=== PATIENT | female | born 1985 | race Caucasian/White ===

== ENCOUNTER 2016-03-15 18:50 | Emergency (ER) | payer SELFPAY ==
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
[2016-03-15] MEDS ORDERED: HYDROCODONE/ACETAMINOPHEN 5-325 MG TABLET PO ONE (20:28)
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
[2016-03-15 20:43] VITALS: BP 147/97
== END 2016-03-15 20:43 | disposition home or self-care (01) ==
LOC: ER 18:50
DX: S69.91XA Unspecified injury of right wrist, hand and finger(s), initial encounter (principal); M79.89 Other specified soft tissue disorders; W21.03XA Struck by baseball, initial encounter; Y93.64 Activity, baseball; Y92.39 Other specified sports and athletic area as the place of occurrence of the external cause; I10 Essential (primary) hypertension; Z98.51 Tubal ligation status
CPT/HCPCS: 99283

== ENCOUNTER 2016-08-03 08:59 | Emergency (ER) | payer OTHER ==
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
[2016-08-03 11:54] VITALS: BP 124/89
== END 2016-08-03 11:55 | disposition home or self-care (01) ==
LOC: ER 08:59
DX: R07.89 Other chest pain (principal); V43.62XA Car passenger injured in collision with other type car in traffic accident, initial encounter; W22.12XA Striking against or struck by front passenger side automobile airbag, initial encounter; Y93.84 Activity, sleeping; I10 Essential (primary) hypertension; J45.909 Unspecified asthma, uncomplicated; F17.210 Nicotine dependence, cigarettes, uncomplicated
CPT/HCPCS: 71260; 99283

== ENCOUNTER 2017-11-20 01:42 | Emergency (ER) | payer SELFPAY ==
[2017-11-20] MEDS ORDERED: LORAZEPAM 1 MG TABLET PO ONE (03:44)
--- NOTE | 2017-11-20 03:44 | ER Document Report ---
ED General - General Chief Complaint: Chest Pain Stated Complaint: CHEST PAIN Time Seen by Provider: 11/20/17 03:39 Mode of Arrival: Ambulatory Information source: Patient, [facility] Records Notes: 32-year-old female with hypertension, bipolar disorder, anxiety presents with complaint of chest tightness, nausea and dizziness that occurred after she drank a double energy shot. Upon my exam patient states that her chest tightness and dizziness have resolved. She states that she took the energy shot at 12 AM because she was cleaning. She does not usually drink caffeine. She denies any associated alcohol or drug use. She does admit to tobacco use. Patient denies fever, chills, shortness of breath, abdominal pain. TRAVEL OUTSIDE OF THE [place] IN LAST 30 DAYS: No - HPI Onset: Just prior to arrival Onset/Duration: Sudden, Gone Quality of pain: Other - Chest tightness Severity: Mild Associated symptoms: Nausea. denies: Diarrhea, Headache, Vomiting, Shortness of breath Exacerbated by: Denies Relieved by: Denies Similar symptoms previously: No Recently seen / treated by doctor: No - Related Data Allergies/Adverse Reactions: No Known Allergies Allergy (Verified 08/03/16 09:02) Past Medical History - General Information source: Patient, [facility] Records - Social History Smoking Status: Current Every Day Smoker Cigarette use (# per day): Yes - 15 Smoking Education Provided: Yes - Smoking cessation counseling was provided for 4 minutes at the bedside Frequency of alcohol use: None Drug Abuse: None Lives with: Spouse/Significant other Family History: Reviewed & Not Pertinent Patient has suicidal ideation: No Patient has homicidal ideation: No - Past Medical History Cardiac Medical History: Reports: Hx Hypertension Pulmonary Medical History: Reports: Hx Asthma Renal/ Medical History: Denies: Hx Peritoneal Dialysis Psychiatric Medical History: Reports: Hx Attention Deficit Hyperactivity Disorder, Hx Bipolar Disorder, Hx Depression, Hx Schizophrenia Past Surgical History: Reports: Hx Tubal Ligation - Immunizations Hx Diphtheria, Pertussis, Tetanus Vaccination: Yes Review of Systems - Review of Systems Notes: REVIEW OF SYSTEMS: CONSTITUTIONAL : Denies fever, chills, or sweats. Denies recent illness. Denies weight loss, recent hospitalizations. EENT: Denies visual changes, eye pain. Denies sore throat, oral lesions, difficulty swallowing. CARDIOVASCULAR: Denies chest pain. Denies palpitations. Denies lower extremity edema. RESPIRATORY: Denies cough. Denies shortness of breath, wheezing. GASTROINTESTINAL: Denies abdominal pain or distention. Denies vomiting, or diarrhea. Denies blood in vomitus, stools, or per rectum. Denies black, tarry stools. Denies constipation. GENITOURINARY: Denies difficulty urinating, painful urination, frequency, blood in urine, or vaginal discharge. MUSCULOSKELETAL: Denies back or neck pain or stiffness. Denies joint pain or swelling. SKIN: Denies rash, lesions or sores. HEMATOLOGIC : Denies easy bruising or bleeding. LYMPHATIC: Denies swollen glands. NEUROLOGICAL: Denies confusion or altered mental status. Denies loss of consciousness. Denies headache. Denies weakness or paralysis. Denies problems difficulty with ambulation, slurred speech. Denies sensory loss, numbness, or tingling. Denies seizures. PSYCHIATRIC: Denies anxiety or stress. Denies depression, suicidal ideation, or homicidal ideation. Denies visual or auditory hallucinations. Physical Exam - Vital signs Vitals: Temp Pulse Resp BP Pulse Ox 98.4 F 99 20 142/91 H 99 11/20/17 01:56 11/20/17 01:56 11/20/17 01:56 11/20/17 01:56 11/20/17 01:56 Interpretation: Hypertensive - Notes Notes: PHYSICAL EXAMINATION: GENERAL: Well-appearing, well-nourished and in no acute distress. HEAD: Atraumatic, normocephalic. EYES: Pupils equal round and reactive to light, extraocular movements intact, conjunctiva are normal. ENT: Nares patent, oropharynx clear without exudates. Moist mucous membranes. NECK: Normal range of motion, supple without lymphadenopathy LUNGS: Breath sounds clear to auscultation bilaterally and equal. No wheezes rales or rhonchi. HEART: Regular rate and rhythm without murmurs ABDOMEN: Soft, nontender, nondistended abdomen. No guarding, no rebound. No masses appreciated. Female : deferred Musculoskeletal: Normal range of motion, no pitting or edema. No cyanosis. NEUROLOGICAL: Cranial nerves grossly intact. Normal speech, normal gait. Normal sensory, motor exams PSYCH: Normal mood, normal affect. SKIN: Warm, Dry, normal turgor, no rashes or lesions noted. Course - Re-evaluation Re-evalutation: 11/20/17 21:40 32-year-old female presents with complaint of chest tightness, dizziness after drinking a double energy shot at 12 AM. Upon my exam patient states that her chest tightness has already resolved. Vital signs stable. Patient does not appear toxic or dehydrated. She is in no acute distress. EKG showed normal sinus rhythm. Chest x-ray is shows no acute abnormality. Patient has remained stable and without discomfort throughout her ED course. Patient requesting discharge home. Patient provided the opportunity to ask questions, and express concerns. Discharge instructions discussed. Patient is agreeable with discharge home. Return indications explained and discussed with the patient who displays understanding. Patient encouraged to return to the emergency department immediately with any concerns. Results were discussed with the patient at this point, after careful consideration I feel that that patient can be discharged from the emergency department, the patient was educated treatments and reasons to return to the emergency department based on their presumed diagnosis as noted above, they were advised to followup with a primary care physician in 2-3 days. Patient was agreeable to plan of care. Dictation on this chart was performed using voice recognition software and may result in unintended grammatical, spelling, syntax or errors. 11/20/17 21:42 - Vital Signs Vital signs: Temp Pulse Resp BP Pulse Ox 98.5 F 96 16 131/89 H 94 11/20/17 05:39 11/20/17 05:39 11/20/17 05:39 11/20/17 05:39 11/20/17 05:39 Discharge - Discharge Clinical Impression: Chest tightness, Dizziness, Caffeine intoxication with complication, Elevated blood pressure reading Condition: Good Disposition: HOME, SELF-CARE Instructions: Chest Pain of Unclear Cause ([facility]), Dizziness ([facility]) Additional Instructions: I believe that your chest tightness was likely secondary to the energy drink that you took earlier today. Forms: Elevated Blood Pressure
--- NOTE | 2017-11-20 03:59 | RADIOLOGY REPORT (SQ) ---
EXAM DESCRIPTION: XR CHEST 2 VIEWS COMPLETED DATE/TME: 11/20/2017 03:39 CLINICAL HISTORY: chest tightness COMPARISON: 06/22/2013 FINDINGS: Frontal and lateral views of the chest. The cardiomediastinal silhouette has normal size and contour. No consolidation, pneumothorax, or pleural effusion. No displaced rib fractures identified. Upper abdominal soft tissues are unremarkable. IMPRESSION: 1. No acute pulmonary process identified.
[2017-11-20 05:42] VITALS: BP 131/89
--- NOTE | 2017-11-20 12:40 | EKG REPORT ---
SEVERITY:- NORMAL ECG - SINUS RHYTHM : Confirmed by: Britt Ramon MD 20-Nov-2017 12:38:43
== END 2017-11-20 05:42 | disposition home or self-care (01) ==
LOC: ER 01:42
DX: F15.929 Other stimulant use, unspecified with intoxication, unspecified (principal); R07.89 Other chest pain; R42 Dizziness and giddiness; R11.0 Nausea; I10 Essential (primary) hypertension; J45.909 Unspecified asthma, uncomplicated; F17.210 Nicotine dependence, cigarettes, uncomplicated; Z71.6 Tobacco abuse counseling
CPT/HCPCS: 71046; 93005; 93010; 99285

== ENCOUNTER 2017-11-27 13:48 | Emergency (ER) | payer SELFPAY ==
[2017-11-27] MEDS ORDERED: CIPROFLOXACIN HCL/DEXAMETH OTIC DROP 7.5 ML AS ONE (14:19)
--- NOTE | 2017-11-27 14:29 | ER Document Report ---
ED ENT - General Chief Complaint: Ear Pain Stated Complaint: EAR SWELLING/PAIN Time Seen by Provider: 11/27/17 14:11 Mode of Arrival: Ambulatory Information source: Patient, Friend - Patient is a 32-year-old female comes to emergency room Notes: Patient is a 32-year-old female comes emergency room complaining left ear pain. Patient states this started about 3 days ago and is progressively gotten worse. She states her boyfriend looked at it this morning and he thinks it is closed up because he cannot see into the ear. It is very painful to touch the outside of the year but it feels like there is a bug inside. She also tells me that it hurts about last night that she stuck her finger in her ear and she also stuck a Q-tip in it and dog until it got better. She also placed peroxide in for an hour. TRAVEL OUTSIDE OF THE [place] IN LAST 30 DAYS: No - HPI Patient complains to provider of: Ear problem Onset: Other - 3 days ago Onset/Duration: Gradual Quality of pain: Achy, Sharp, Stabbing Severity: Moderate Pain Level: 3 Context: Injury Location of pain: Ears Associated symptoms: Ear pain. denies: Ear drainage, Fever Similar symptoms previously: No Recently seen / treated by doctor: No - Related Data Allergies/Adverse Reactions: No Known Allergies Allergy (Verified 11/27/17 13:48) Past Medical History - General Information source: Patient - Social History Smoking Status: Current Every Day Smoker Cigarette use (# per day): Yes Chew tobacco use (# tins/day): No Smoking Education Provided: Yes Frequency of alcohol use: Rare Drug Abuse: None Lives with: Family Family History: Reviewed & Not Pertinent - Past Medical History Cardiac Medical History: Reports: Hx Hypertension Pulmonary Medical History: Reports: Hx Asthma Renal/ Medical History: Denies: Hx Peritoneal Dialysis Psychiatric Medical History: Reports: Hx Attention Deficit Hyperactivity Disorder, Hx Bipolar Disorder, Hx Depression, Hx Schizophrenia Past Surgical History: Reports: Hx Tubal Ligation - Immunizations Hx Diphtheria, Pertussis, Tetanus Vaccination: Yes Review of Systems - Review of Systems Constitutional: No symptoms reported EENT: No symptoms reported, Ear pain Cardiovascular: No symptoms reported Respiratory: No symptoms reported Gastrointestinal: No symptoms reported Genitourinary: No symptoms reported Female Genitourinary: No symptoms reported Musculoskeletal: No symptoms reported Skin: No symptoms reported Hematologic/Lymphatic: No symptoms reported Neurological/Psychological: No symptoms reported -: Yes All other systems reviewed and negative Physical Exam - Vital signs Vitals: Temp Pulse Resp BP Pulse Ox 98.1 F 99 14 143/96 H 100 11/27/17 13:51 11/27/17 13:51 11/27/17 13:51 11/27/17 13:51 11/27/17 13:51 Interpretation: Hypertensive - Notes Notes: Patient is a well-nourished well-developed 32-year-old female. She is in no apparent distress. - General General appearance: Alert, Other - Uncomfortable appearing In distress: None - HEENT Head: Normocephalic, Atraumatic Eyes: Normal Extraocular movements intact: Yes Pupils: PERRL Ears: Pinna tenderness, Other - Examination of patient's ears shows there to be a external canal cellulitis that extends from the pinna into the inner canal. The external canal is very erythematous and angry appearing may be secondary to the peroxide and to the trauma caused by patient last night. The entire external canal is angry appearing. It is difficult to see the TM secondary to the amount of erythema that is in the ear the canal itself is not closed up and there is no exudate. The TM appears to be intact and bulging with a fluid level behind it. This would indicate that there is no perforation. The fluid appears to be clear in nature. The rest of the TM is very hyperemic. External canal: Blood in canal, Erythema. No: Swollen Tympanic membrane: Bulging, Injected, Loss of landmarks. No: Perforation Hearing loss: Left Sinus: Maxillary, Tenderness, Other - Left maxillary sinus is tender to palpation. Nasal: Other - Examination of the head and upper airway showed nasal mucosa to be moderately erythematous and edematous with a rhinorrhea noted that is clear. Pharynx: Erythema. No: Blood in hypopharynx, Exudate, Peritonsillar abscess, Post nasal drainage, Retropharyngeal abscess, Tonsillar hypertrophy, Uvular edema, Potential airway comprom. Neck: Anterior cervical chain, Lymphadenopathy, Supple. No: Normal, Posterior cervical chain, Brudzinski, Carotid bruit, Meningismus, Neck mass, Shotty nodes , Subcutaneous emphysema, Thyroid nodule, Thyromegally - Respiratory Respiratory status: No respiratory distress Chest status: Nontender Breath sounds: Normal. No: Rales, Rhonchi, Stridor, Wheezing Chest palpation: Normal - Cardiovascular Rhythm: Regular Heart sounds: Normal auscultation Murmur: No - Skin Skin Temperature: Warm Skin Moisture: Dry Skin Color: Normal Course - Re-evaluation Re-evalutation: 11/27/17 14:31 It appears the patient has cellulitis on the external canal to the lobe itself. She also has a otitis media probably secondary to sinuses. Is bulging TM with fluid behind it. I am going to treat the outside cellulitis with Bactrim and we will also use Ciprodex drops. And will place her on Sudafed as well. - Vital Signs Vital signs: Temp Pulse Resp BP Pulse Ox 98.5 F 92 16 130/96 H 100 11/27/17 14:57 11/27/17 14:57 11/27/17 14:57 11/27/17 14:57 11/27/17 14:57 Discharge - Discharge Clinical Impression: Cellulitis of external ear, unspecified ear Qualifiers: Laterality: left Qualified Code(s): H60.12 - Cellulitis of left external ear Otitis externa Qualifiers: Otitis externa type: other infective Chronicity: acute Laterality: left Qualified Code(s): H60.392 - Other infective otitis externa, left ear Condition: Stable Disposition: HOME, SELF-CARE Instructions: Acetaminophen, Cellulitis ([facility]), Use of Ear Drops ([facility]), Otitis Externa ([facility]) Additional Instructions: Home and use 3 drops of the medication twice a day. Do not use any more peroxide in the ear do not stick anything in your ear that is smaller than your elbow please. Take medication as prescribed. Return to ER if you should have any concerns or problems or if he was not progressing appropriately. Prescriptions: Pseudoephedrine HCl [Sudafed 12 Hour] 120 mg PO BID #20 tablet.er Sulfamethoxazole/Trimethoprim [Bactrim Ds Tablet] 1 each PO BID #20 tablet Forms: Elevated Blood Pressure, Smoking Cessation Education, Parent Work Note
[2017-11-27 14:58] VITALS: BP 130/96
== END 2017-11-27 15:25 | disposition home or self-care (01) ==
LOC: ER 13:48
DX: H60.12 Cellulitis of left external ear (principal); H66.90 Otitis media, unspecified, unspecified ear; J34.89 Other specified disorders of nose and nasal sinuses; R59.0 Localized enlarged lymph nodes; F17.210 Nicotine dependence, cigarettes, uncomplicated; I10 Essential (primary) hypertension; J45.909 Unspecified asthma, uncomplicated
CPT/HCPCS: 99282; J3490

== ENCOUNTER 2019-10-31 23:27 | Emergency (ER) | payer SELFPAY ==
[2019-10-31] MEDS ORDERED: METHYLPREDNISOLONE INJ 125 MG/2 ML SDV IV ONE (23:40)
[2019-10-31] MEDS ORDERED: CYCLOBENZAPRINE HCL 10 MG TABLET PO ONE (23:40)
[2019-10-31 23:41] VITALS: BP 141/95
--- NOTE | 2019-10-31 23:41 | ER Document Report ---
HPI - HPI Patient complains to provider of: Back pain Time Seen by Provider: 10/31/19 23:33 Pain Level: 3 Context: 34-year-old female past medical history significant for sciatica presents to the emergency room complaining of worsening pain to her right lower back that radiates down her right leg. States she noticed numbness in her calf yesterday. Back has been bothering her for the past 4 days after wrestling with her brother. She denies any new acute trauma or injury. States she is been taking ibuprofen without relief. She denies any loss of control over bowels or bladder, no saddle anesthesia. No red flags states she was diagnosed with sciatica several years ago. Has never had an MRI. Denies any urinary symptoms. Denies any chance of . Associated Symptoms: None Exacerbated by: Standing, Walking Relieved by: Denies Similar symptoms previously: No Recently seen / treated by doctor: No - ROS Systems Reviewed and Negative: Yes All other systems reviewed and negative - NEURO Neurology: DENIES: Weakness - URINARY Urinary: DENIES: Dysuria, Urgency, Frequency - REPRODUCTIVE Reproductive: DENIES: : - MUSCULOSKELETAL Musculoskeletal: REPORTS: Extremity pain, Back Pain - DERM Skin Color: Normal Skin Problems: None Past Medical History - General Information source: Patient - Social History Smoking Status: Current Every Day Smoker Frequency of alcohol use: None Drug Abuse: None Family History: Reviewed & Not Pertinent - Past Medical History Cardiac Medical History: Reports: Hx Hypertension Pulmonary Medical History: Reports: Hx Asthma Renal/ Medical History: Denies: Hx Peritoneal Dialysis Psychiatric Medical History: Reports: Hx Attention Deficit Hyperactivity Disorder, Hx Bipolar Disorder, Hx Depression, Hx Schizophrenia Past Surgical History: Reports: Hx Tubal Ligation - Immunizations Hx Diphtheria, Pertussis, Tetanus Vaccination: Yes Vertical Provider Document - CONSTITUTIONAL Agree With Documented VS: Yes Exam Limitations: No Limitations General Appearance: Mild Distress - INFECTION CONTROL TRAVEL OUTSIDE OF THE [place] IN LAST 30 DAYS: No - HEENT HEENT: Atraumatic, Normocephalic - NECK Neck: Normal Inspection, Supple, Thyroid Normal - RESPIRATORY Respiratory: Breath Sounds Normal, No Respiratory Distress, Chest Non-Tender - CARDIOVASCULAR Cardiovascular: Regular Rate, Regular Rhythm, No Murmur - BACK Back: Abnormal Inspection - Nontender to palpation over the vertebral spine. There is tenderness of the right sciatic notch.. negative: CVA Tenderness- Right, CVA Tenderness-Left - MUSCULOSKELETAL/EXTREMETIES Musculoskeletal/Extremeties: FROM - NEURO Level of Consciousness: Awake, Alert, Appropriate Motor/Sensory: No Motor Deficit, No Sensory Deficit, No Pronator Drift Deep Tendon Reflexes: 2+ Notes: Full sensation to the right lower leg. Full range of motion with flexion, and extension of the right lower extremity. She is neurovascularly intact. Positive right pedal pulse. Capillary refill less than 3 seconds. - DERM Integumentary: Warm, Dry, No Rash Course - Re-evaluation Re-evalutation: 10/31/19 23:55 Patient was counseled to take medications as prescribed. She is ambulatory with a steady gait. She has negative straight leg raising bilaterally. She is neurovascularly intact. Counseled on need to follow-up outpatient with orthopedics. Patient was provided with on-call physician. Patient was given strict return to the emergency room guidelines. Return for any new or worsening symptoms. All questions were answered. Patient verbalized understanding and agrees with plan of care. Discharge - Discharge Clinical Impression: Back pain with right-sided sciatica Condition: Stable Disposition: HOME, SELF-CARE Instructions: Numbness or Paresthesia ([facility]), Sciatica ([facility]) Additional Instructions: You have been seen in the Emergency Department (ED) today for back pain. Your workup and exam have not shown any acute abnormalities and you are likely suffering from muscle strain or possible problems with your discs, but there is no treatment that will fix your symptoms at this time. Please take the Flexeril and prednisone that has been prescribed as directed. You can also take Tylenol and/or Motrin as needed for pain. You should also purchase a local lidocaine cream such as "aspercreme with lidocaine" and use per bottle instructions to the affected area. Apply heat to the area as often as you are able. Continue to keep active and avoid prolonged periods of bed rest. Please follow up with orthopedics as soon as possible regarding today's ED visit and your back pain. Return to the ED for worsening back pain, fever, weakness or numbness of either leg, or if you develop either (1) an inability to urinate or have bowel movements, or (2) loss of your ability to control your bathroom functions (if you start having "accidents"), or if you develop other new symptoms that concern you.concern you. Prescriptions: Prednisone [Deltasone 20 mg Tablet] See Protocol PO DAILY 9 Days #18 tablet Cyclobenzaprine HCl [Flexeril 10 mg Tablet] 10 mg PO TIDP PRN #15 tab PRN Reason: Referrals: CARSON PEREZ DO [ACTIVE STAFF] - Follow up tomorrow (Call tomorrow for an outpatient follow-up appointment.)
[2019-10-31] MEDS ORDERED: METHYLPREDNISOLONE INJ 125 MG/2 ML SDV IM ONE (23:52)
== END 2019-11-01 00:04 | disposition home or self-care (01) ==
LOC: ER 23:27
DX: M54.41 Lumbago with sciatica, right side (principal); F17.200 Nicotine dependence, unspecified, uncomplicated; I10 Essential (primary) hypertension; J45.909 Unspecified asthma, uncomplicated
CPT/HCPCS: 99285; J2930

== ENCOUNTER 2020-01-15 20:32 | Emergency (ER) | payer SELFPAY ==
[2020-01-15] MEDS ORDERED: KETOROLAC TROMETHAMINE 60 MG/2 ML SDV IM ONE (21:01)
[2020-01-15] MEDS ORDERED: METHYLPREDNISOLONE INJ 125 MG/2 ML SDV IM ONE (21:01)
[2020-01-15] MEDS ORDERED: CYCLOBENZAPRINE HCL 10 MG TABLET PO ONE (21:02)
--- NOTE | 2020-01-15 21:54 | ER Document Report ---
HPI - HPI Patient complains to provider of: Right-sided sciatica Time Seen by Provider: 01/15/20 20:58 Context: 34-year-old female with history of sciatica presents to the emergency room complaining of worsening right sciatic pain for the past 3 days. States pain radiates from her right hip down her entire right leg. Denies any numbness or tingling. Denies any generalized weakness. Has been taking ibuprofen without relief. Last dose 6 hours prior to arrival. She denies any new trauma or injury. Denies any loss of control of her bowels or bladder. No saddle anesthesia. No red flags. Last seen for symptoms in October but has not followed up due to lack of insurance. She denies any chance of . Associated Symptoms: None Exacerbated by: Movement Relieved by: Denies Similar symptoms previously: Yes - History of sciatica Recently seen / treated by doctor: No - ROS Systems Reviewed and Negative: Yes All other systems reviewed and negative - NEURO Neurology: DENIES: Weakness - REPRODUCTIVE Reproductive: DENIES: : - MUSCULOSKELETAL Musculoskeletal: REPORTS: Back Pain - DERM Skin Color: Normal, [place] Skin Problems: None Past Medical History - General Information source: Patient - Social History Smoking Status: Current Every Day Smoker Frequency of alcohol use: None Drug Abuse: None Family History: Reviewed & Not Pertinent - Past Medical History Cardiac Medical History: Reports: Hx Hypertension Pulmonary Medical History: Reports: Hx Asthma Renal/ Medical History: Denies: Hx Peritoneal Dialysis Psychiatric Medical History: Reports: Hx Attention Deficit Hyperactivity Disorder, Hx Bipolar Disorder, Hx Depression, Hx Schizophrenia Past Surgical History: Reports: Hx Tubal Ligation - Immunizations Hx Diphtheria, Pertussis, Tetanus Vaccination: Yes Vertical Provider Document - CONSTITUTIONAL Agree With Documented VS: Yes Exam Limitations: No Limitations General Appearance: Mild Distress - INFECTION CONTROL TRAVEL OUTSIDE OF THE [place] IN LAST 30 DAYS: No - HEENT HEENT: Atraumatic, Normocephalic - NECK Neck: Normal Inspection, Supple - RESPIRATORY Respiratory: Breath Sounds Normal, No Respiratory Distress, Chest Non-Tender - CARDIOVASCULAR Cardiovascular: Regular Rate, Regular Rhythm, No Murmur - BACK Back: Abnormal Inspection - Tenderness on palpation from L4-S1. Tenderness over the right sciatic notch with muscle spasms palpated in the lower lumbar region. No step-offs. No obvious deformity. Negative straight leg raising bilaterally.. negative: CVA Tenderness-Right, CVA Tenderness-Left - MUSCULOSKELETAL/EXTREMETIES Musculoskeletal/Extremeties: FROM, Non-Tender - NEURO Level of Consciousness: Awake, Alert, Appropriate Motor/Sensory: No Motor Deficit, No Sensory Deficit Notes: Ambulatory with a steady gait. She is neurovascularly intact. - DERM Integumentary: Warm, Dry, No Rash Course - Re-evaluation Re-evalutation: 01/15/20 21:59 Patient with slight improvement in pain. Negative straight leg raising bilaterally. Ambulatory with a steady gait. Neurovascularly intact. Patient received her Flexeril but never got her Toradol or Solu-Medrol injections. She will get them now and be discharged home. She was counseled on the importance of an outpatient follow-up with either primary care physician or orthopedics. She was provided with the on-call orthopedist. Take medications as prescribed. Patient was given strict return to the emergency room guidelines. Return for any new or worsening symptoms. All questions were answered. Patient verbalized understanding and agrees with plan of care. 01/15/20 22:22 - Vital Signs Vital signs: Temp Pulse Resp BP Pulse Ox 98.3 F 98 18 136/89 H 100 01/15/20 20:57 01/15/20 20:57 01/15/20 20:57 01/15/20 20:57 01/15/20 20:57 Discharge - Discharge Clinical Impression: Sciatica, right side Condition: Stable Disposition: HOME, SELF-CARE Instructions: Sciatica ([facility]) Additional Instructions: You have been seen in the Emergency Department (ED) today for back pain and right-sided sciatica your workup and exam have not shown any acute abnormalities and you are likely suffering from muscle strain or possible problems with your discs, but there is no treatment that will fix your symptoms at this time. Please take the Flexeril and prednisone that has been prescribed as directed. You should also purchase a local lidocaine cream such as "aspercreme with lidocaine" and use per bottle instructions to the affected area. Apply heat to the area as often as you are able. Continue to keep active and avoid prolonged periods of bed rest. Please follow up with your doctor as soon as possible regarding today's ED visit and your back pain. Return to the ED for worsening back pain, fever, weakness or numbness of either leg, or if you develop either (1) an inability to urinate or have bowel movements, or (2) loss of your ability to control your bathroom functions (if you start having "accidents"), or if you develop other new symptoms that concern you.concern you. Prescriptions: Prednisone [Deltasone 20 mg Tablet] See Protocol PO DAILY 9 Days #18 tablet Cyclobenzaprine HCl [Flexeril 10 mg Tablet] 10 mg PO TIDP PRN #15 tab PRN Reason: Referrals: CARSON PEREZ DO [ACTIVE STAFF] - Follow up as needed
[2020-01-15 22:10] VITALS: BP 137/84
== END 2020-01-15 23:00 | disposition home or self-care (01) ==
LOC: ER 20:32
DX: M54.31 Sciatica, right side (principal); F17.200 Nicotine dependence, unspecified, uncomplicated; I10 Essential (primary) hypertension; Z98.51 Tubal ligation status
CPT/HCPCS: 99284; 96372; J1885; J2930